=== PATIENT | male | born 1990 ===

== ENCOUNTER 2018-11-27 12:13 | Emergency (ER) | payer SELFPAY ==
[2018-11-27 12:24] VITALS: BP 124/79; PULSE 74; RESP 18; TEMP 97.5; O2SAT 99
--- NOTE | 2018-11-27 12:56 | C.PDOC ---
History Of Present Illness 28 year old male presents to the ED complaining of decreased hearing in right ear for 5 days status post cleaning ear with Qtip. Denies any fever, chills, discharge, bleeding or pain. Time Seen by Provider: 11/27/18 12:36 Chief Complaint (Nursing): ENT Problem History Per: Patient History/Exam Limitations: None Onset/Duration Of Symptoms: Days (5) Current Symptoms Are (Timing): Still Present Quality (Ear): Other Past Medical History Vital Signs: Last Vital Signs Temp 97.5 F L 11/27/18 12:22 Pulse 74 11/27/18 12:22 Resp 18 11/27/18 12:22 BP 124/79 11/27/18 12:22 Pulse Ox 99 11/27/18 12:22 - Medical History PMH: Asthma - Social History Hx Alcohol Use: No Hx Substance Use: No - Immunization History Hx Tetanus Toxoid Vaccination: No Hx Influenza Vaccination: No Hx Pneumococcal Vaccination: No ED Course And Treatment O2 Sat by Pulse Oximetry: 99 (RA) Pulse Ox Interpretation: Normal Disposition - Disposition - Scribe Statement The provider has reviewed the documentation as recorded by the Scribe Marta Alicea All medical record entries made by the Scribe were at my direction and personally dictated by me. I have reviewed the chart and agree that the record accurately reflects my personal performance of the history, physical exam, medical decision making, and the department course for this patient. I have also personally directed, reviewed, and agree with the discharge instructions and disposition.
--- NOTE | 2018-11-27 12:56 | C.PDOC ---
History Of Present Illness 28 year old male presents to the ED complaining of decreased hearing in right ear for 5 days status post cleaning ear with Qtip. Denies any fever, chills, discharge, bleeding or pain. Time Seen by Provider: 11/27/18 12:36 Chief Complaint (Nursing): ENT Problem History Per: Patient History/Exam Limitations: None Onset/Duration Of Symptoms: Days Current Symptoms Are (Timing): Still Present Quality (Ear): Other (decreased hearing ) Past Medical History Reviewed: Historical Data, Nursing Documentation, Vital Signs Vital Signs: Last Vital Signs Temp 97.5 F L 11/27/18 12:22 Pulse 74 11/27/18 12:22 Resp 18 11/27/18 12:22 BP 124/79 11/27/18 12:22 Pulse Ox 99 11/27/18 12:22 - Medical History PMH: Asthma Surgical History: No Surg Hx Family History: States: No Known Family Hx - Social History Hx Alcohol Use: No Hx Substance Use: No - Immunization History Hx Tetanus Toxoid Vaccination: No Hx Influenza Vaccination: No Hx Pneumococcal Vaccination: No Review Of Systems Except As Marked, All Systems Reviewed And Found Negative. Constitutional: Negative for: Fever, Chills ENT: Positive for: Other (decreased hearing in right ear). Negative for: Ear Pain, Ear Discharge Neurological: Negative for: Headache Physical Exam - Physical Exam Appears: Non-toxic, No Acute Distress Skin: Warm, Dry Head: No Normacephalic Eye(s): bilateral: PERRL, EOMI Ear(s): Bilateral: Other (wax noted to B/L ear, no FB noted ) Nose: Normal Oral Mucosa: Moist Neck: Supple Chest: Symmetrical Cardiovascular: Rhythm Regular Respiratory: Other (NARD) Neurological/Psych: Oriented x3 Gait: Steady ED Course And Treatment O2 Sat by Pulse Oximetry: 99 (RA) Pulse Ox Interpretation: Normal Medical Decision Making Medical Decision Making: Patient given Rx. for Debrox Ear Drops. Patient instructed to follow up and return to the ED if symptoms worsen or persist. Patient stable and ready for discharge. Disposition Counseled Patient/Family Regarding: Diagnosis, Need For Followup - Disposition Referrals: [facility] [Outside] [facility] [Outside] Disposition: HOME/ ROUTINE Disposition Time: 12:55 Condition: GOOD Prescriptions: Carbamide Peroxide [Debrox Ear Drops] 2 drop OU BID #1 bottle Instructions: Ear Wax Impaction (DC) Forms: [facility] (Lebanese) - Clinical Impression Clinical Impression: Cerumen impaction - Scribe Statement The provider has reviewed the documentation as recorded by the Scribe Marta Alicea All medical record entries made by the Scribe were at my direction and personall y dictated by me. I have reviewed the chart and agree that the record accurately reflects my personal performance of the history, physical exam, medical decision making, and the department course for this patient. I have also personally directed, reviewed, and agree with the discharge instructions and disposition.
== END 2018-11-27 13:05 | disposition home or self-care (01) ==
LOC: C.ER 12:13
DX: H61.21 Impacted cerumen, right ear (principal)